=== PATIENT | female | born 1970 | race Caucasian/White ===

== ENCOUNTER 2017-04-28 01:39 | Emergency (ER) | payer BC ==
[2017-04-28] MEDS ORDERED: NS 0.9% 1000 ML* 1,000 ML IV ONE (02:04)
[2017-04-28 02:44] LABS: Hematocrit 35 % (35-47); Hemoglobin 11.4 g/dl (12.0-16.0); Mean Corpuscular HGB Conc 33 g/dl (31-36); Mean Corpuscular Hemoglobin 26 pg (27-31); Mean Corpuscular Volume 80 fL (80-97); Mean Platelet Volume 7 um3 (7.4-10.4); Red Blood Count 4.32 10^6/ul (4.0-5.4); Red Cell Distribution Width 15 % (10.5-15); White Blood Count 7.3 10^3/ul (3.5-10.8)
[2017-04-28 02:55] LABS: Albumin 4.2 g/dL (3.2-5.2); BUN/Creatinine Ratio 24.2 (8-20); C Reactive Protein 7.81 mg/L (< 5.00); Calcium 9.3 mg/dL (8.6-10.3); EGFR African American 133.9 (>60); EGFR Non-African American 104.1 (>60); Globulin 2.6 g/dL (2-4); Potassium 3.5 mmol/L (3.5-5.0); Total Bilirubin 0.3 mg/dL (0.2-1.0); Total Protein 6.8 g/dL (6.4-8.9)
[2017-04-28] MEDS ORDERED: Iohexol 300* (CONTRAST) 10 ML SDV IV ONE (03:37)
[2017-04-28 03:39] LABS: Urine Bilirubin Negative (Negative); Urine Glucose Negative (Negative); Urine Nitrite Negative (Negative)
--- NOTE | 2017-04-28 04:33 | ED ---
Denzel East Rebecca, scribed for Simón Natarajan MD on 04/28/17 at 0158 . Abdominal Pain/Female - HPI Summary HPI Summary: Pt is a 46 y/o F who presents to ED c/o LLQ and L flank pain. Pain has been present for the last week to week and a half and has been gradually worsening, particularly worse since yesterday morning. Pain has been intermittent since onset and is currently moderate, ranked 5/10. Sx aggravated by staying in one position for too long, alleviated very slightly by Tylenol with codeine. Additionally c/o nausea and abdominal distention. Denies vomiting, fever, dysuria. No prior similar episodes. Was seen by [facility] about 1 week ago. PSHx bladder surgery 5 years ago. - History of Current Complaint Chief Complaint: EDFlankPain Stated Complaint: ABD AND BACK PAIN Time Seen by Provider: 04/28/17 01:57 Hx Obtained From: Patient Onset/Duration: Still Present, Worse Since - Yesterday morning Timing: Intermittent Episode Lasting Severity Currently: Moderate Pain Intensity: 5 Pain Scale Used: 0-10 Numeric Location: Discrete At: LLQ, Flank - Left Aggravating Factor(s): Other: - Staying in one position Alleviating Factor(s): Medications - Tylenol with codeine Associated Signs and Symptoms: Positive: Nausea, Other: - Abdominal distention. Negative: Fever, Urinary Symptoms, Vomiting Allergies/Adverse Reactions: Allergies Allergy/AdvReac Type Severity Reaction Status Date / Time Latex Allergy Intermediate Rash Verified 04/08/13 04:50 PMH/Surg Hx/FS Hx/Imm Hx Endocrine/Hematology History: Denies: Hx Diabetes GI History: Reports: Other GI Disorders - Hx ulcerative colitis - Surgical History Surgery Procedure, Year, and Place: c-sections: January 2000, December 2001, May 2003, Jul 2006, May 2010, December 2011. gallbladder removal May 2000 Hx Anesthesia Reactions: No Infectious Disease History: No Infectious Disease History: Denies: Traveled Outside the [place] in Last 30 Days - Family History Known Family History: Positive: Cardiac Disease - Social History Alcohol Use: None Substance Use Type: Reports: None Smoking Status (MU): Never Smoked Tobacco Review of Systems Negative: Fever Positive: Abdominal Pain - LLQ and L flank, Nausea, Other - Abdominal distention. Negative: Vomiting Negative: dysuria All Other Systems Reviewed And Are Negative: Yes Physical Exam Triage Information Reviewed: Yes Vital Signs On Initial Exam: Initial Vitals Temp Pulse Resp BP Pulse Ox 98.7 F 71 16 115/61 98 04/28/17 01:51 04/28/17 01:51 04/28/17 01:51 04/28/17 01:51 04/28/17 01:51 Vital Signs Reviewed: Yes Appearance: Positive: Well-Appearing, Pain Distress - mild pain Skin: Positive: Warm Head/Face: Positive: Normal Head/Face Inspection Eyes: Positive: KENNY ENT: Positive: Hearing grossly normal Neck: Positive: Supple, Nontender Respiratory/Lung Sounds: Positive: Clear to Auscultation, Breath Sounds Present Cardiovascular: Positive: RRR Abdomen Description: Positive: Soft, Other: - mild deep llq tenderness. Negative: Distended, Guarding Bowel Sounds: Positive: Present Musculoskeletal: Positive: Strength/ROM Intact Neurological: Positive: Alert, Oriented to Person Place, Time Psychiatric: Positive: Affect/Mood Appropriate Diagnostics - Vital Signs Vital Signs Temp Pulse Resp BP Pulse Ox 04/28/17 01:51 98.7 F 71 16 115/61 98 - Laboratory Result Diagrams: 04/28/17 02:20 04/28/17 02:20 Lab Statement: Any lab studies that have been ordered have been reviewed, and results considered in the medical decision making process. - CT Abd/Pel CT CT Interpretation Completed By: Radiologist - Small involuting left ovarian cyst without free fluid. No definite evidence of acute pathology. ED physician reviewed this radiology report and agrees. Re-Evaluation - Re-Evaluation First Eval Re-Evaluation Time: 05:01 Change: Improved Comment: Discussed CT results. Pt has improved. Abdominal Pain Fem Course/Dx - Course Course Of Treatment: Pt is a 46 y/o F who presents to ED c/o LLQ and L flank pain. Pain has been present for the last week to week and a half and has been gradually worsening, particularly worse since yesterday morning. Pain has been intermittent since onset and is currently moderate, ranked 5/10. Sx aggravated by staying in one position for too long, alleviated very slightly by Tylenol with codeine. Additionally c/o nausea and abdominal distention. Denies vomiting , fever, dysuria. No prior similar episodes. Was seen by [facility] about 1 week ago. PSHx bladder surgery [address] Abd/Pel reveals "Small involuting left ovarian cyst without free fluid. No definite evidence of acute pathology" In the ED course, pt was given Toradol and fluids. Pt will be D/C to home with Dx of ovarian cyst with Rx for Naproxen and a follow up with [facility]. She understands and agrees. - Diagnoses Provider Diagnoses: Ovarian cyst Discharge - Discharge Plan Condition: Improved Disposition: HOME Prescriptions: Naproxen [Naprosyn 500 mg] 500 mg PO BID #20 tab Patient Education Materials: Ovarian Cyst (ED) Referrals: George Santamaria MD [Primary Care Provider] - Pita Vanegas MD [Medical Doctor] - 3 Days The documentation as recorded by the Denzel muhammad Rebecca accurately reflects the service I personally performed and the decisions made by me, Simón Natarajan MD.
[2017-04-28] MEDS ORDERED: Ketorolac INJ* 30 MG/ML 1 ML VIAL IV PUSH ONE (05:02)
[2017-04-28 06:47] VITALS: BP 109/56
--- NOTE | 2017-04-28 09:19 | RAD ---
Indication: Left lower quadrant pain. Contrast: Administered 100.3 ml of OMNIPAQUE 300 mg/ml. CT of the abdomen and pelvis was performed after oral and IV contrast administration. Coronal and sagittal reconstructed images were obtained. The lung bases demonstrate no pleural fluid, nodules or masses. The heart is of normal size without evidence of pericardial effusion. The liver is normal in size. No focal lesions or intrahepatic duct dilatation is noted. The patient is status post cholecystectomy. The spleen is normal in size. Low density lesion is noted in the spleen measuring up to 16 mm. No adrenal masses are noted. The kidneys demonstrate symmetric nephrograms without focal lesions. The pancreas demonstrates no mass or pancreatic duct dilatation. The common duct is not dilated. No adrenal lesions are identified. No dilated loops of bowel are noted. CT of the pelvis demonstrates no retroperitoneal or pelvic lymphadenopathy. The uterus is grossly unremarkable. No hernias are identified. No free fluid is noted. IMPRESSION: No abnormal masses or fluid collections are identified.
== END 2017-04-28 06:47 | disposition home or self-care (01) ==
LOC: ED 01:39
DX: N83.202 Unspecified ovarian cyst, left side (principal); R10.32 Left lower quadrant pain; R11.0 Nausea
CPT/HCPCS: 36415; 74177; 80053; 81003; 83605; 83690; 85025; 86140; 96374; 99284; J1885; Q9967